=== PATIENT | male | born 1970 | race Caucasian/White ===

== ENCOUNTER 2020-09-10 10:00 | Observation (INO) ==
[2020-09-10 11:27] LABS: Hematocrit 44.7 % (37.5-50.1); Hemoglobin 15.6 g/dL (12.9-16.9); Mean Corpuscular HGB Conc 34.9 g/dL (31.6-35.5); Mean Corpuscular Hemoglobin 32.1 pg (28.0-33.3); Mean Platelet Volume 9.1 fL (9.4-12.4); Platelet Count 181 K/mcL (140-400); Red Blood Count 4.86 M/mcL (4.19-5.50); Red Cell Distribution Width 12.5 % (11.5-14.5); White Blood Count 5.6 K/mcL (4.3-11.1)
[2020-09-10 11:32] LABS: Bilirubin,Urine Negative (Negative); Blood,Urine Negative (Negative); Clarity,Urine Clear (Clear); Color,Urine Light-Yellow (Yellow); Glucose,Urine (UA) Normal (Normal); Ketones,Urine Negative (Negative); Leukocyte Esterase,Urine Negative (Negative); Nitrite,Urine Negative (Negative); PH,Urine 7.5 pH Units (5.0-8.0); Protein,Urine Trace mg/dL (Neg-Trace); Specific Gravity,Urine 1.014 (1.010-1.025); Urobilinogen,Urine Normal (Normal)
[2020-09-10] MEDS ORDERED: lisinopriL 20 MG TABLET PO STA (11:46)
[2020-09-10 11:48] LABS: BUN/Creatinine Ratio 16 (6-26); Blood Urea Nitrogen 12 mg/dL (6-20); Calcium 8.8 mg/dL (8.6-10.3); Carbon Dioxide 24 mEq/L (23-29); Chloride 104 mEq/L (98-107); Glucose 98 mg/dL (70-105); Osmolality,Calculated 286 (280-300); Potassium 3.9 mEq/L (3.5-5.1); Sodium 138 mEq/L (136-145); eGFR For African Americans > 60 (> 60); eGFR For Non-African Americans > 60 (> 60)
[2020-09-10 11:50] LABS: Troponin I < 0.03 ng/mL (< 0.04)
[2020-09-10] MEDS ORDERED: Ondansetron 4 MG/2 ML VIAL IVP PRN (13:21)
[2020-09-10] MEDS ORDERED: Naloxone 0.4 MG/ML INJ IVP PRN (13:21)
[2020-09-10] MEDS ORDERED: Acetaminophen 325 MG TABLET PO PRN (13:21)
[2020-09-10] MEDS ORDERED: Gadolinium Contrast Agent (WT Based) IV PRN (13:21)
[2020-09-10] MEDS ORDERED: Aspirin 325 MG TABLET PO ONE (13:22)
[2020-09-10 14:01] LABS: INR 1.1; Prothrombin Time 12.9 Seconds (9.4-12.1)
[2020-09-10] MEDS ORDERED: Ringers Solution, Lactated 1,000 ML IVC SCH ×2 (17:45)
[2020-09-10] MEDS ORDERED: Nicotine 2 MG GUM BC PRN (17:49)
[2020-09-11 05:59] LABS: Basophils % 0.8 %; Hematocrit 43.1 % (37.5-50.1); Hemoglobin 14.9 g/dL (12.9-16.9); Immature Granulocytes % 0.3 % (0-4); Lymphocytes # 1.6 K/mcL (0.6-4.6); Lymphocytes % 40.4 %; Mean Corpuscular HGB Conc 34.6 g/dL (31.6-35.5); Mean Corpuscular Hemoglobin 32.3 pg (28.0-33.3); Mean Corpuscular Volume 93.3 fL (83.0-100.0); Mean Platelet Volume 9.3 fL (9.4-12.4); Monocytes # 0.4 K/mcL (0.0-1.3); Monocytes % 9.8 %; Neutrophils # 1.9 K/mcL (1.6-8.9); Platelet Count 160 K/mcL (140-400); Red Blood Count 4.62 M/mcL (4.19-5.50); Red Cell Distribution Width 12.9 % (11.5-14.5); Segmented Neutrophils % 48.7 %; White Blood Count 3.9 K/mcL (4.3-11.1)
[2020-09-11 06:00] LABS: Estimated Average Glucose 120 mg/dl; Hemoglobin A1C 5.8 %
[2020-09-11 07:40] LABS: BUN/Creatinine Ratio 19 (6-26); Blood Urea Nitrogen 15 mg/dL (6-20); Calcium 8.8 mg/dL (8.6-10.3); Carbon Dioxide 24 mEq/L (23-29); Chloride 106 mEq/L (98-107); Chol/HDL Ratio 6.2 (0-4.9); Cholesterol 198 mg/dL (< 200); Glucose 134 mg/dL (70-105); HDL Cholesterol 32 mg/dL (40-59); LDL Cholesterol,Calculated 130 mg/dL (< 100); Magnesium 2.2 mg/dL (1.6-2.6); Osmolality,Calculated 293 (280-300); Sodium 140 mEq/L (136-145); Triglycerides 179 mg/dL (< 150); eGFR For African Americans > 60 (> 60); eGFR For Non-African Americans > 60 (> 60)
[2020-09-11 07:41] LABS: Albumin/Globulin Ratio 1.5 (1.1-2.2); Bilirubin,Direct 0.1 mg/dL (0.0-0.2); Bilirubin,Indirect 0.6 mg/dL (0.0-1.0); Bilirubin,Total 0.7 mg/dL (0.3-1.0); Globulin 2.6 g/dL (2.4-3.5); Total Protein 6.6 g/dL (6.4-8.9)
[2020-09-11] MEDS: Aspirin 81 MG TAB.CHEW PO SCH (08:41)
[2020-09-11] MEDS: Nicotine 21 MG PATCH.TD24 TD SCH (08:43)
[2020-09-11] MEDS: Lisinopril-HCTZ 20-12.5mg TABLET PO SCH (12:34)
[2020-09-12 01:27] LABS: Hematocrit 44.5 % (37.5-50.1); Hemoglobin 15.5 g/dL (12.9-16.9); Mean Corpuscular HGB Conc 34.8 g/dL (31.6-35.5); Mean Corpuscular Hemoglobin 32.2 pg (28.0-33.3); Mean Corpuscular Volume 92.5 fL (83.0-100.0); Mean Platelet Volume 9.5 fL (9.4-12.4); Platelet Count 183 K/mcL (140-400); Red Blood Count 4.81 M/mcL (4.19-5.50); Red Cell Distribution Width 12.6 % (11.5-14.5)
[2020-09-12] MEDS: Aspirin 81 MG TAB.CHEW PO SCH (07:13)
[2020-09-12] MEDS: Lisinopril-HCTZ 20-12.5mg TABLET PO SCH (07:13)
[2020-09-12] MEDS: Nicotine 21 MG PATCH.TD24 TD SCH (07:14)
[2020-09-12 07:33] VITALS: BP 149/88; PULSE 58; TEMP 97.7; O2SAT 98
== END 2020-09-12 09:46 | disposition home or self-care (01) ==
LOC: SUATTDRO → EMEROOARM 10:00 → 3BNU 10:00 → SUATTDRO 14:57 → 3BNU 15:37
PROVIDERS: ADMIT Pharmacist; ATTEND Nurse Practitioner